=== PATIENT | female | born 1985 | race Caucasian/White ===

== ENCOUNTER 2018-11-30 15:06 | Inpatient (IN) | payer OTHER ==
[~2018-11-30] VITALS: Ht 170.2 cm; Wt 107.7 kg
[2018-11-30] MEDS ORDERED: HYDROmorphone 1 MG/ML, 1ML INJ IVPush PRN (15:30)
[2018-11-30] MEDS ORDERED: SODIUM CHLORIDE FLUSH 10ML SYR IVF ONE (15:30)
[2018-11-30] MEDS ORDERED: CEFAZOLIN PMX 1GM/50ML 50 ML IVPB ONE (15:30)
[2018-11-30] MEDS ORDERED: NAPR220C2 PO (15:31)
[2018-11-30 15:36] LABS: BASOPHILS # (AUTO) 0.05 x10^3/uL (0-0.1); BASOPHILS % (AUTO) 0 % (0-1); EOSINOPHILS # (AUTO) 0.09 x10^3/uL (0-0.4); EOSINOPHILS % (AUTO) 1 % (1-7); LYMPHOCYTES # (AUTO) 3.34 x10^3/uL (1-3.4); LYMPHOCYTES % (AUTO) 24 % (22-44); MD NO; MEAN CORPUSCULAR HEMOGLOBIN 29.5 pg (27.0-34.8); MEAN CORPUSCULAR HGB CONC 33.3 g/dL (32.4-35.8); MEAN CORPUSCULAR VOLUME 88.5 fL (80-100); MEAN PLATELET VOLUME 10.7 fL (7.4-10.4); MONOCYTES # (AUTO) 0.55 x10^3/uL (0.2-0.8); MONOCYTES % (AUTO) 4 % (2-9); NEUTROPHILS # (AUTO) 10.19 x10^3/uL (1.8-6.8); NEUTROPHILS % (AUTO) 72 % (42-75); PLATELET COUNT 215 x10^3/uL (130-400); RED BLOOD COUNT 5.17 x10^6/uL (3.82-5.3); RED CELL DISTRIBUTION WIDTH 13.1 % (9.6-15.2)
[2018-11-30] MEDS ORDERED: HYDROmorphone 2 MG/ML, 1ML ONE (15:47)
[2018-11-30 15:48] LABS: ALBUMIN 4.7 g/dL (3.4-5.0); ANION GAP 10 mmol/L (5-15); CALCIUM 9.2 mg/dL (8.5-10.1); CHLORIDE 111 mmol/L (98-107); CREATININE 1.34 mg/dL (0.55-1.02)
[2018-11-30] MEDS ORDERED: L.E.T SOLUTION TP ONE (15:48)
[2018-11-30] MEDS ORDERED: CEFAZOLIN PMX 1GM/50ML 50 ML ONE (15:49)
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
--- NOTE | 2018-11-30 16:08 | NUR ---
NOTIFIED DR. العلي THAT BLOOD PRESSURE IS IN THE 80S SYSTOLIC AFTER DILAUDID. 1 LITER NS BOLUS ORDERED AND STARTED.
[2018-11-30] MEDS ORDERED: DIPH,PERTUSS(ACELL),TET VAC/PF 0.5 ML IM-VACC ONE ×2 (16:27→16:30)
[2018-11-30] MEDS ORDERED: ONDANSETRON 2MG/ML, 2ML ONE ×2 (16:28→20:17)
[2018-11-30] MEDS ORDERED: SODIUM CHLORIDE 0.9% 1,000ML IVBOLUS ONE (16:30)
[2018-11-30] MEDS ORDERED: ONDANSETRON 2MG/ML, 2ML IVPush ONE (16:30)
--- NOTE | 2018-11-30 16:56 | NUR ---
PATIENT MOVED TO ROOM 19. SBAR HAND-OFF REPORT GIVEN TO JENNIFER HOOD.
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
--- NOTE | 2018-11-30 17:54 | NUR ---
REPORT GIVEN TO RECEIVING JENNIFER ESPINOZA
--- NOTE | 2018-11-30 18:12 | NUR ---
REPORT TO ASSOCIATE PROFESSOR OF PHYSICS
[2018-11-30] MEDS ORDERED: MIDAZOLAM 1 MG/ML, 2ML ONE (18:42)
[2018-11-30] MEDS ORDERED: FENTANYL PF 250 MCG/5ML ONE (18:42)
[2018-11-30] MEDS ORDERED: HALOPERIDOL 5 MG/ML IV PRN (19:00)
[2018-11-30] MEDS ORDERED: ONDANSETRON 2MG/ML, 2ML IV PRN (19:00)
[2018-11-30] MEDS ORDERED: ACETAMINOPHEN 325 MG TABLET PO PRN ×2 (19:00→23:00)
[2018-11-30] MEDS ORDERED: MEPERIDINE/PF 25MG/0.5ML IVPush PRN (19:00)
[2018-11-30] MEDS ORDERED: PROMETHAZINE 25 MG SUPP PR PRN (19:00)
[2018-11-30] MEDS ORDERED: PROMETHAZINE 25 MG/ML, 1ML IV PRN (19:00)
[2018-11-30] MEDS ORDERED: PROMETHAZINE 25 MG/ML, 1ML IM PRN ×2 (19:00)
[2018-11-30] MEDS ORDERED: OXYcodone 5 MG/5 ML ORAL.SOL UDC PO PRN (19:00)
[2018-11-30] MEDS ORDERED: ONDANSETRON ODT 8 MG PO PRN (19:00)
[2018-11-30] MEDS ORDERED: FENTANYL PF 100 MCG/2ML IV PRN (19:00)
[2018-11-30] MEDS ORDERED: PROMETHAZINE 12.5 MG SUPP PR PRN (19:00)
[2018-11-30] MEDS ORDERED: LABETALOL 5MG/ML, 20ML IV PRN (19:00)
[2018-11-30] MEDS ORDERED: HYDROmorphone 2 MG/ML, 1ML IVPush PRN (19:00)
[2018-11-30] MEDS ORDERED: MORPHINE SULFATE 4 MG/ML, 1ML IVPush PRN (19:00)
[2018-11-30] MEDS ORDERED: hydrALAzine 20 MG/ML, 1ML IV PRN (19:00)
[2018-11-30] MEDS ORDERED: BUPIVACAINE/PF 0.5% ONE (20:09)
[2018-11-30] MEDS ORDERED: LIDOCAINE 1%, 20ML ONE (20:09)
[2018-11-30] MEDS ORDERED: BUPIVACAINE/PF 0.5% INFIL ONE (20:12)
[2018-11-30] MEDS ORDERED: LIDOCAINE 1%, 20ML INFIL ONE (20:13)
[2018-11-30] MEDS ORDERED: GLYCOPYRROLATE 0.2MG/1ML, 5ML ONE (20:17)
[2018-11-30] MEDS ORDERED: ROCURONIUM 10MG/ML,5ML ONE (20:17)
[2018-11-30] MEDS ORDERED: PROPOFOL 10 MG/ML, 20ML ONE (20:17)
[2018-11-30] MEDS ORDERED: CEFAZOLIN 1,000 MG ONE (20:17)
[2018-11-30] MEDS ORDERED: SUCCINYLCHOLINE 20 MG/ML, 10ML ONE (20:17)
[2018-11-30] MEDS ORDERED: NEOSTIGMINE 1 MG/ML, 10ML ONE (20:17)
[2018-11-30] MEDS ORDERED: DEXAMETHASONE 4 MG/ML, 1ML ONE (20:17)
[2018-11-30] MEDS ORDERED: KETOROLAC 30 MG/1 ML ONE (20:23)
[2018-11-30] MEDS ORDERED: OXYcodone 5 MG/5 ML ORAL.SOL UDC ONE (20:50)
[2018-11-30] MEDS ORDERED: PROMETHAZINE 25 MG/ML, 1ML ONE (21:12)
[2018-11-30] MEDS ORDERED: AMPICILLIN/SULBACTAM 3 GM in SODIUM CHLORIDE 0.9% 100 ML IV SCH (23:00)
[2018-11-30] MEDS ORDERED: ONDANSETRON 2MG/ML, 2ML IVPush PRN (23:00)
[2018-11-30] MEDS ORDERED: TEMAZEPAM 15 MG CAPSULE PO PRN (23:00)
[2018-11-30] MEDS ORDERED: DOCUSATE 100 MG CAPSULE PO PRN (23:00)
[2018-12-01] MEDS ORDERED: CEFAZOLIN PMX 1GM/50ML 50 ML IV SCH
[2018-12-01] MEDS: LACTATED RINGERS 1,000 ML IV SCH ×4 (00:50→19:00)
[2018-12-01] MEDS: PENICILLIN GK IV SCH ×2 (00:57→13:54)
[2018-12-01] MEDS: HEPARIN 5,000 UNITS/ML, 1ML SQ SCH ×4 (00:57→23:26)
[2018-12-01] MEDS: DEXTROSE 5% IV SCH ×2 (00:57→13:54)
[2018-12-01] MEDS: CEFAZOLIN 2,000 MG in SODIUM CHLORIDE 0.9% 50 ML IV SCH ×3 (03:05→21:07)
[2018-12-01] MEDS ORDERED: CEFAZOLIN 1,000 MG IM SCH (03:30)
[2018-12-01 03:59] VITALS: BP 92/51
[2018-12-01 05:46] LABS: ANION GAP 8 mmol/L (5-15); CALCIUM 8.7 mg/dL (8.5-10.1); CHLORIDE 111 mmol/L (98-107); CREATININE 1.07 mg/dL (0.55-1.02); MEAN CORPUSCULAR HEMOGLOBIN 29.6 pg (27.0-34.8); MEAN CORPUSCULAR HGB CONC 33.2 g/dL (32.4-35.8); MEAN CORPUSCULAR VOLUME 89.4 fL (80-100); MEAN PLATELET VOLUME 10.9 fL (7.4-10.4); PLATELET COUNT 191 x10^3/uL (130-400); RED BLOOD COUNT 4.54 x10^6/uL (3.82-5.3); RED CELL DISTRIBUTION WIDTH 12.9 % (9.6-15.2)
[2018-12-01 06:08] LABS: BASOPHILS # (AUTO) 0.01 x10^3/uL (0-0.1); BASOPHILS % (AUTO) 0 % (0-1); EOSINOPHILS % (AUTO) 0 % (1-7); LYMPHOCYTES # (AUTO) 1.03 x10^3/uL (1-3.4); LYMPHOCYTES % (AUTO) 5 % (22-44); MD SCAN; MONOCYTES # (AUTO) 0.41 x10^3/uL (0.2-0.8); MONOCYTES % (AUTO) 2 % (2-9); NEUTROPHILS # (AUTO) 17.87 x10^3/uL (1.8-6.8); NEUTROPHILS % (AUTO) 93 % (42-75)
[2018-12-01 06:50] VITALS: BP 106/51
[2018-12-01 08:27] VITALS: BP 107/54
[2018-12-01] MEDS: OXYcodone/APAP 5/325MG TABLET PO PRN ×3 (13:06→22:13)
[2018-12-01 13:50] VITALS: BP 101/57
[2018-12-01 18:50] VITALS: BP 95/48
[2018-12-01] MEDS ORDERED: IBUPROFEN 200 MG TABLET PO PRN (21:30)
[2018-12-02 01:09] VITALS: BP 103/63
[2018-12-02] MEDS: LACTATED RINGERS 1,000 ML IV SCH ×3 (01:40→14:12)
[2018-12-02] MEDS: DEXTROSE 5% IV SCH (03:01)
[2018-12-02] MEDS: PENICILLIN GK IV SCH (03:01)
[2018-12-02] MEDS: CEFAZOLIN 2,000 MG in SODIUM CHLORIDE 0.9% 50 ML IV SCH ×2 (03:30→12:08)
[2018-12-02] MEDS: OXYcodone/APAP 5/325MG TABLET PO PRN ×2 (08:03→14:12)
[2018-12-02] MEDS: HEPARIN 5,000 UNITS/ML, 1ML SQ SCH ×2 (08:04→14:12)
[2018-12-02 08:42] LABS: BASOPHILS # (AUTO) 0.05 x10^3/uL (0-0.1); BASOPHILS % (AUTO) 1 % (0-1); EOSINOPHILS # (AUTO) 0.04 x10^3/uL (0-0.4); EOSINOPHILS % (AUTO) 0 % (1-7); LYMPHOCYTES # (AUTO) 3.06 x10^3/uL (1-3.4); LYMPHOCYTES % (AUTO) 30 % (22-44); MD NO; MEAN CORPUSCULAR HGB CONC 32.9 g/dL (32.4-35.8); MEAN CORPUSCULAR VOLUME 88.1 fL (80-100); MEAN PLATELET VOLUME 10.2 fL (7.4-10.4); MONOCYTES # (AUTO) 0.66 x10^3/uL (0.2-0.8); MONOCYTES % (AUTO) 7 % (2-9); NEUTROPHILS # (AUTO) 6.26 x10^3/uL (1.8-6.8); NEUTROPHILS % (AUTO) 62 % (42-75); PLATELET COUNT 154 x10^3/uL (130-400); RED BLOOD COUNT 4.15 x10^6/uL (3.82-5.3); RED CELL DISTRIBUTION WIDTH 13.4 % (9.6-15.2)
[2018-12-02 08:49] LABS: ALBUMIN 3.1 g/dL (3.4-5.0); ANION GAP 6 mmol/L (5-15); CALCIUM 8.1 mg/dL (8.5-10.1); CHLORIDE 112 mmol/L (98-107)
[2018-12-02 08:52] LABS: ALANINE AMINOTRANSFERASE 17 U/L (12-78); ALKALINE PHOSPHATASE 72 U/L (45-117); BILIRUBIN,TOTAL 0.2 mg/dL (0.2-1.0); CREATININE 1.07 mg/dL (0.55-1.02); TOTAL PROTEIN 6.5 g/dL (6.4-8.2)
[2018-12-02 09:45] VITALS: BP 97/62
[2018-12-02 14:49] VITALS: BP 105/65
== END 2018-12-02 17:14 | disposition home or self-care (01) | DRG 513 ==
LOC: ED 16:23 → EDIP 17:04 → 4NOR 22:00
PROVIDERS: ADMIT Orthopaedic Surgery; ATTEND Orthopaedic Surgery
PROC: 0LQ70ZZ Repair Right Hand Tendon, Open Approach (ICD-10-PCS; principal; 2018-11-30 18:30)
DX: S62.619B Displaced fracture of proximal phalanx of unspecified finger, initial encounter for open fracture (principal); N17.0 Acute kidney failure with tubular necrosis; I95.81 Postprocedural hypotension; D72.829 Elevated white blood cell count, unspecified; Z80.6 Family history of leukemia; Z83.3 Family history of diabetes mellitus; Y93.52 Activity, horseback riding; Y93.89 Activity, other specified; Y92.89 Other specified places as the place of occurrence of the external cause; Y99.8 Other external cause status
CPT/HCPCS: 36415; 73130; 76000; 99285; J3490; S0020; 80048; 80053; 82040; 85025; 86850; 86900; 90471; 90715; 96365; 96375; G0378; J0690; J1100; J1170; J1644; J1885; J2250; J2405; J2540; J2550; J2704; J2710; J3010; J0330; J7030; J7120